=== PATIENT | male | born 1975 | race Caucasian/White ===

== ENCOUNTER 2017-08-10 17:37 | Emergency (ER) | payer BC, OTHER ==
[~2017-08-10] VITALS: Ht 182.9 cm; Wt 82.0 kg
[2017-08-10 17:45] VITALS: BP 144/105; PULSE 75; RESP 18; TEMP 98.3; O2SAT 100
--- NOTE | 2017-08-10 18:16 | RADRPT ---
EXAM DATE: 08/10/2017 6:10 PM EDT AGE/SEX: 42 years / Male INDICATIONS: Left great toe laceration. CLINICAL DATA: This is the patient's initial encounter. Patient reports that signs and symptoms have been present for 1 day and indicates a pain score of 0/10. MEDICAL/SURGICAL HISTORY: None. None. COMPARISON: No prior [facility] exams available for comparison. FINDINGS: There is a minimally displaced intra-articular fracture involving the head of the great toe proximal phalanx. The base of the distal phalanx has markedly comminuted intra-articular fracturing, mostly th e lateral/plantar corner of the bone. Innumerable comminuted fracture fragments measuring up to 4 mm in size are present and they are displaced up to 5 mm. Large great toe soft tissue injury demonstrated. CONCLUSION: 1. Displaced, open and markedly comminuted intra-articular fracture of the base of the great toe dis des phalanx. 2. Minimally displaced intra-articular fracture of the head of the great toe proximal phalanx. Electronically signed by: Jaylan Priest MD 08/10/2017 6:15 PM EDT
[2017-08-10] MEDS ORDERED: AMPICILLIN-SULBACTAM INJ 3 GM in SODIUM CHLORIDE 0.9% INJ 100 ML IV ONE (19:00)
[2017-08-10] MEDS ORDERED: TETANUS/DIPHTHERIA TOXOID ADULT 0.5 ML VIAL IM ONE (19:00)
--- NOTE | 2017-08-10 19:12 | PD ---
HPI Chief Complaint: Laceration/Skin Injury Time Seen by Provider: 17:54 Travel History International Travel<30 days: No Contact w/Intl Traveler<30days: No Traveled to known affect area: No History of Present Illness HPI 42-year-old male presents emergency department for evaluation of a right great toe laceration that occurred today. Says that a trailer hitch fell on his toe resulting in his injury. He denies numbness or tingling of the toe. Says he had a difficulty extending his toe but says that he has since been able to somewhat extend his toe is come to the emergency department. Says the pain is minimal. He was able to control the bleeding prior to arrival. [facility] Past Medical History Medical History: Denies Significant Hx Tetanus Vaccination: > 5 Years Influenza Vaccination: No Past Surgical History Surgical History: No Previous Surgery Social History Alcohol Use: Yes (OCCAS) Tobacco Use: No Substance Use: No Allergies-Medications (Allergen,Severity, Reaction): Coded Allergies: No Known Allergies (Unverified , 08/10/17) Reported Meds & Prescriptions Reported Meds & Active Scripts Active Keflex (Cephalexin) 500 Mg Cap 500 Mg PO Q8H 10 Days Bactrim DS (Sulfamethoxazole-Trimethoprim) 800-160 Mg Tab 1 Tab PO BID Review of Systems Except as stated in HPI: all other systems reviewed are Neg Physical Exam Narrative GENERAL: Well-developed, well-nourished no apparent distress SKIN: Focused skin assessment warm/dry. HEAD: Atraumatic. Normocephalic. EYES: Pupils equal and round. No scleral icterus. No injection or drainage. ENT: No nasal bleeding or discharge. Mucous membranes pink and moist. NECK: Trachea midline. No JVD. MUSCULOSKELETAL: No obvious deformities. No clubbing. No cyanosis. No edema. Left great toe-laceration present diagonally from the medial mid toe to the distal PIP, probable tendon laceration- visible proximal portion of extensor tendon, unable to visualize distal tendon. neurovascularly intact toe. some extension of toe present. NEUROLOGICAL: Awake and alert. No obvious cranial nerve deficits. Motor grossly within normal limits. Normal speech. PSYCHIATRIC: Appropriate mood and affect; insight and judgment normal. Data Data Last Documented VS Vital Signs Date Time Temp Pulse Resp B/P (MAP) Pulse Ox O2 Delivery O2 Flow Rate FiO2 08/10/17 19:22 20 08/10/17 17:45 98.3 75 144/105 (118) 100 Orders Orders Toe (Min 2vws) (08/10/17 ) Ampicillin-Sulbactam Inj (Unasyn Inj) (08/10/17 19:00) Tetanus/Diphtheria Tox Adult (Tetanus/Di (08/10/17 19:00) Clindamycin Inj (Cleocin Inj) (08/10/17 19:15) Ed Discharge Order (08/10/17 19:13) Support Splint (08/10/17 19:13) Shoe Cast (08/10/17 ) MDM Medical Decision Making Medical Screen Exam Complete: Yes Emergency Medical Condition: Yes Differential Diagnosis Left toe fracture, avulsion, laceration Narrative Course 42-year-old male presents emergency department evaluation of a laceration injury to the left great toe that occurred prior to arrival. His exam findings consistent with a laceration and probable fracture of the toe. Likely tendon laceration as well. Last Impressions Toe X-Ray 08/10/17 0000 Signed Impressions: CONCLUSION: 1. Displaced, open and markedly comminuted intra-articular fracture of the bas e of the great toe distal phalanx. 2. Minimally displaced intra-articular fracture of the head of the great toe p roximal phalanx. Patient has an open fracture of the left great toe. Irrigated the toe thoroughly with sterile saline and iodine. Explored to determine the depth of the injury. Laceration repair completed. Unfortunately I could not reapproximate the tendon of the toe. Patient is leaving to go to [place] tomorrow so will not be up to follow-up with a coke oven patcher here in [facility]. Clindamycin administered in the emergency department. I strongly advised that he follow-up with coke oven patcher when she returns to [place] advised that he could lose his toe or develop a severe infection of his foot if he does not follow-up. Advised that he also take his antibiotics as prescribed to reduce complications. I discussed this case with my attending, Dr. Bailey. Postop shoe when walking. Advised on wound care. Procedures Procedure Narrative LACERATION LOCATION: Left great toe LENGTH: 2 cm, jagged edges in the lateral wound edges NUMBER OF STITCHES/JOE: 4 internal, 10 external REPAIR: The area of the laceration was prepped with Betadine and sterilely draped. The toe was infiltrated with 1% lidocaine without epinephrine, The wound was copiously irrigated and explored without evidence of foreign body , tendon injury or neurovascular injury. The wound was closed using 6-0 Vicryl and 3-0 Prolene. This was a 2 layer repair. A sterile dressing was applied. The patient was advised to keep the dressing clean and dry. Patient tolerated the procedure well. Diagnosis Primary Impression: Open toe fracture Qualified Codes: S92.414B - Nondisplaced fracture of proximal phalanx of right great toe, initial encounter for open fracture Referrals: Advanced Practice Nurse Psychotherapist Additional Instructions: Follow up with your primary care physician within 2-3 days. Leave the yellow gauze on for 2-3 days unless it becomes contaminated or dirty. After 2-3 days, you may remove the yellow gauze and apply dry dressing. Keep the area clean and dry at all times. Take the antibiotics as discussed to reduce the possibility of an infection. Keep area clean and dry for 24 hours. After 24 hours, you may bathe as normal but dry the area thoroughly. Change dressings daily. If bleeding starts, apply pressure and elevate the area. If you developed increased redness, swelling, or pain return to the emergency department as this could be a sign of infection. Follow-up with the coke oven patcher as discussed to reduce the risk of losing her toe or worsening infection. Follow up within 2-3 days! Scripts Cephalexin (Keflex) 500 Mg Cap 500 MG PO Q8H for Infection for 10 Days, #30 CAP 0 Refills Prov: Berhane Bailey MD 08/10/17 Sulfamethoxazole-Trimethoprim (Bactrim DS) 800-160 Mg Tab 1 TAB PO BID for Infection, #20 TAB 0 Refills Prov: Berhane Bailey MD 08/10/17 Disposition: 01 DISCHARGE HOME Condition: Stable Rukhsana Fuentes Aug 10, 2017 19:12
[2017-08-10] MEDS ORDERED: BACT800T5 PO (19:13)
[2017-08-10] MEDS ORDERED: CEPH-460 PO (19:13)
[2017-08-10] MEDS ORDERED: CLINDAMYCIN PHOS 600 MG/4 ML VIAL IM ONE (19:15)
[2017-08-10 19:51] VITALS: BP 136/84
== END 2017-08-10 20:26 | disposition home or self-care (01) ==
LOC: PHED 17:37
DX: S92.415B Nondisplaced fracture of proximal phalanx of left great toe, initial encounter for open fracture (principal); W22.8XXA Striking against or struck by other objects, initial encounter; Z23 Encounter for immunization
CPT/HCPCS: 12031; 73660; 90471; 90714; 96372; 99283; L3260